=== PATIENT | female | born 1965 | race African-American/Black ===

== ENCOUNTER 2018-06-17 02:31 | Emergency (ER) | payer OTHER ==
--- NOTE | 2018-06-17 03:04 | PDOC ---
History of Present Illness - General Chief Complaint: Pain, Acute Stated Complaint: L SHOULDER PAIN Time Seen by Provider: 06/17/18 02:46 History Source: Patient Exam Limitations: No Limitations - History of Present Illness Initial Comments: 06/17/18 04:53 52y F presenting with atrauamtic L shoulder pain. The patient notes she was working with a contracted patient 2 days ago and felt alittle twinge in her L shoulder when she was trying to open up the patient's arm when she was drawing blood. She felt well enough to complete her shift. That evening the patient felt increasing pain has been worsening over the past day. The patient denies any recent injuries, traumas or falls, denies any pain or chest, pain in her neck. The patient localizes her pain initially primarily to the anterior shoulder and noted it was worse when she abducted her shoulder, however the patent has worsened to the point where she barely move without significant pain. sHe has not taken any pain medication at home. sHe has never had any prior problems with her shoulder. She denies any fever, chills, tingling or weakness. PE GENERAL: The patient is awake, alert, and fully oriented, Nontoxic - in no acute distress. HEAD: Normocephalic, atraumatic. NECK: Normal range of motion, supple - mild tenderness noted in the left trapezius LUNGS: Breath sounds equal, clear to auscultation bilaterally. No wheezes, no rhonchi, no rales. HEART: Regular rate and rhythm, normal S1 and S2 without murmur, rub or gallop. ABDOMEN: Soft, nontender, EXTREMITIES: RUE: Mild tenderness in the anterior shoulder, motion limited by pain, sensation intact, radial pulses symmetric. NEUROLOGICAL: No facial assymetry, Normal speech, normal gait PSYCH: Normal mood, normal affect. SKIN: Warm, Dry, normal turgor, Suspect muscle strain consider possible ligamentous injury. The patient's shoulder x-ray noted for athritic changes no other signs of fracture or dislocation Patient is feeling improved with Toradol and Valium. Discharge patient with tramadol Motrin Tylenol. Will have the patient follow-up with PMD and ortho 06/17/18 05:02 Past History - Past Medical History Allergies/Adverse Reactions: Allergies Allergy/AdvReac Type Severity Reaction Status Date / Time quinine Allergy Verified 06/17/18 03:25 Home Medications: Ambulatory Orders Tramadol HCl 50 mg PO QID PRN #12 tablet MDD 4 06/17/18 - Suicide/Smoking/Psychosocial Hx Smoking History: Never smoked Have you smoked in the past 12 months: No Information on smoking cessation initiated: No Hx Alcohol Use: No Drug/Substance Use Hx: No *Physical Exam - Vital Signs Last Vital Signs Temp Pulse Resp BP Pulse Ox 97.6 F 82 20 155/88 97 06/17/18 02:47 06/17/18 02:47 06/17/18 02:47 06/17/18 02:47 06/17/18 02:47 Heart Score/ECG Review - ECG Impressions Comment:: 06/17/18 05:03 Twelve-lead EKG was performed and reviewed by me. There is normal sinus rhythm with a normal rate. rate of 66 left bbb ED Treatment Course - RADIOLOGY Radiology Studies Ordered: Category Date Time Status SHOULDER-LEFT [RAD] Stat Radiology 06/17/18 03:03 Ordered *DC/Admit/Observation/Transfer Diagnosis at time of Disposition: Shoulder pain Qualifiers: Chronicity: acute Laterality: left Qualified Code(s): M25.512 - Pain in left shoulder - Discharge Dispostion Disposition: HOME Condition at time of disposition: Improved Decision to Admit order: No - Prescriptions Prescriptions: Tramadol HCl 50 mg PO QID PRN #12 tablet MDD 4 PRN Reason: Pain - Referrals Referrals: [facility] [place] [Provider Group] - Patient Instructions Printed Discharge Instructions: DI for Shoulder Pain Additional Instructions: Return to the emergency department immediately with ANY new, persistent or worsening symptoms. You MUST call and follow up with your doctor doctor in 4-5 days for further evaluation of your symptoms. Results were discussed with you. Please make sure your doctor reviews the results of your emergency evaluation. If you had any xrays during your visit, it was read preliminarily by myself, a Radiologist will review it and if there are any additional findings we will call you. Print Language: LATVIAN - Post Discharge Activity
[2018-06-17 03:07] VITALS: BMI 27.4
[2018-06-17] MEDS ORDERED: diazePAM 2 MG TABLET PO ONE (03:10)
[2018-06-17] MEDS ORDERED: KETOROLAC TROMETHAMINE 60 MG/2 ML VIAL IM ONE (03:10)
[2018-06-17] MEDS ORDERED: traMADol HCL 50 MG TABLET PO ONE (05:31)
[2018-06-17] MEDS ORDERED: traMADol HCL 50 MG TABLET ONE (05:32)
[2018-06-17 05:40] VITALS: BP 136/78; PULSE 88; TEMP 98.5
--- NOTE | 2018-06-17 21:14 | EKG ---
Test Reason : Blood Pressure : / mmHG Vent. Rate : 066 BPM Atrial Rate : 066 BPM P-R Int : 162 ms QRS Dur : 156 ms QT Int : 468 ms P-R-T Axes : 033 -11 150 degrees QTc Int : 490 ms NORMAL SINUS RHYTHM LEFT BUNDLE BRANCH BLOCK ABNORMAL ECG NO PREVIOUS ECGS AVAILABLE Confirmed by MITCHELL FOUNTAIN MD ([id number]) on 06/17/2018 9:14:07 PM Referred By: Confirmed By:MITCHELL FOUNTAIN MD
== END 2018-06-17 05:40 | disposition home or self-care (01) ==
LOC: JER 02:31
PROC: 3E0233Z Introduction of Anti-inflammatory into Muscle, Percutaneous Approach (ICD-10-PCS; principal; 2018-06-17)
DX: M25.512 Pain in left shoulder (principal)
CPT/HCPCS: 73030-TC-LT-FY; 93005; 93010; 99282-25